=== PATIENT | female | born 1955 | race Caucasian/White ===

== ENCOUNTER → 2017-07-30 | Outpatient (CLI) | payer MEDICARE, OTHER ==
--- NOTE | 2017-07-30 10:43 | Diagnostic Imaging Report ---
INDICATION: Routine screening. COMPARISON: 01/31/2015 and 05/06/2013. TECHNIQUE: Screening digital mammography was performed bilaterally with a Computer Aided Detection (CAD) system. FINDINGS: Scattered fibroglandular densities are identified bilaterally. The parenchymal pattern is stable. A nodular density in the inner left breast at mid depth appears stable. No new mass or malignant appearing microcalcifications are seen. The axillae are unremarkable. IMPRESSION: No mammographic features suspicious for malignancy are identified. ACR BI-RADS Category 2: Benign findings. Result letter will be mailed to the patient. Note: At least 10% of breast cancer is not imaged by mammography. Dictated by: Dictated on workstation # [id number]
== END ==
LOC: RAD 08:45
PROVIDERS: ATTEND Family Medicine
DX: Z12.31 Encounter for screening mammogram for malignant neoplasm of breast (principal)
CPT/HCPCS: 77067

== ENCOUNTER → 2018-08-11 | Outpatient (CLI) | payer MEDICARE, OTHER ==
--- NOTE | 2018-08-11 16:38 | Diagnostic Imaging Report ---
INDICATION: Routine screening. COMPARISON: 07/30/2017 and 01/31/2015. TECHNIQUE: 2D and 3D bilateral screening mammography was performed with CAD. FINDINGS: Scattered fibroglandular densities are identified bilaterally. The parenchymal pattern is stable. No mass or malignant appearing microcalcifications are seen. The axillae are unremarkable. IMPRESSION: No mammographic features suspicious for malignancy are identified. ACR BI-RADS Category 1: Negative. Result letter will be mailed to the patient. Note: At least 10% of breast cancer is not imaged by mammography. Dictated by: Dictated on workstation # [id number]
== END ==
LOC: RAD 07:33
PROVIDERS: ATTEND Family Medicine
DX: Z12.31 Encounter for screening mammogram for malignant neoplasm of breast (principal)
CPT/HCPCS: 77067

== ENCOUNTER → 2018-10-21 | Outpatient (CLI) | payer MEDICARE, OTHER ==
--- NOTE | 2018-10-21 14:59 | Diagnostic Imaging Report ---
EXAMINATION: Right knee at 02:16 p.m. INDICATION: Knee pain. FINDINGS: Three views were obtained. There are no prior studies available for comparison. There is no fracture, dislocation, or acute bony abnormality evident. The knee joint is well maintained. The soft tissues are unremarkable. IMPRESSION: There is no evidence for an acute bony abnormality. Dictated by: Dictated on workstation # [id number]
== END ==
LOC: RAD 14:00
PROVIDERS: ATTEND Family Medicine
DX: M25.461 Effusion, right knee (principal)
CPT/HCPCS: 73562

== ENCOUNTER → 2018-11-13 | Outpatient (CLI) | payer MEDICARE, OTHER ==
--- NOTE | 2018-11-13 09:21 | Diagnostic Imaging Report ---
PROCEDURE: MR imaging cervical spine without contrast. TECHNIQUE: Multiplanar, multisequence MR imaging of the cervical spine was performed without contrast. INDICATION: Bilateral upper extremity pain and lower leg pain. Prior cervical spine surgery. COMPARISON: MRI cervical spine without contrast 08/09/2014. FINDINGS: Posterior arches of C1 and C2 appear to be fused posteriorly. The dens appears to be absent. There is stable atlantoaxial alignment and articulation. C1 is normally situated on the condyles. Stable 6 mm T2 hyperintensity in the cervical cord at the level of C2. Grade 1 anterolisthesis of C3 on C4 and C4 on C5 is stable. There is reversal of the normal cervical lordosis centered at C5. Moderate diffuse degenerative endplate changes. No acute osseous findings. No evidence for ligamentous injury. No high-grade spinal canal narrowing. Uncovertebral and facet arthropathy result in mild bilateral neural foraminal narrowing at C4-C5, moderate at C5-C6 and C6-C7. No other substantial neural foraminal narrowing. The visualized paravertebral soft tissues are unremarkable. IMPRESSION: 1. There appears to be postoperative findings in the atlantoaxial articulation with fusion of the posterior arches. There is stable alignment of the skull base, C1 and C2 compared to the prior exam. Bony anatomy at craniocervical junction could be better assessed with noncontrast CT if clinically warranted. 2. No high-grade spinal canal narrowing. Scattered uwsj-qw-eturfjak neural foraminal narrowing as above. 3. Stable nonspecific T2 hyperintensity in the cervical cord at the level of C2. No other abnormal cervical cord signal. Dictated by: Dictated on workstation # [id number]
== END ==
LOC: RAD 07:47
PROVIDERS: ATTEND Family Medicine
DX: M47.22 Other spondylosis with radiculopathy, cervical region (principal); M43.12 Spondylolisthesis, cervical region; M46.82 Other specified inflammatory spondylopathies, cervical region; M48.02 Spinal stenosis, cervical region; Z98.1 Arthrodesis status
CPT/HCPCS: 72141

== ENCOUNTER 2021-06-12 05:37 | Outpatient (CLI) | payer MEDICARE, OTHER ==
[~2021-06-12] VITALS: Ht 167.7 cm; Wt 63.9 kg
[2021-06-12] MEDS ORDERED: LEVO88CA4 PO (16:29)
[2021-06-12] MEDS ORDERED: LOVA10TA PO (16:29)
[2021-06-12] MEDS ORDERED: TIZA4CAP8 PO (16:29)
[2021-06-12] MEDS ORDERED: TRM50T PO (16:29)
== END 2021-06-12 16:34 | disposition home or self-care (01) ==
LOC: PREOP 05:37
PROVIDERS: ATTEND Obstetrics & Gynecology
DX: Z01.818 Encounter for other preprocedural examination (principal)

== ENCOUNTER 2021-06-18 06:01 | Day surgery (SDC) | payer MEDICARE, OTHER ==
[2021-06-18] VITALS (10 sets, daily range): BP systolic 112–153; BP diastolic 39–72
[~2021-06-18] VITALS: Ht 167 cm; Wt 63.9 kg
[~2021-06-18 06:01] MED LIST: LEVO88CA4 PO; LOVA10TA PO; TIZA4CAP8 PO; TRM50T PO
[2021-06-18] MEDS ORDERED: ceFAZolin 2 GM IV Premixed 50 ML IV ONE (06:15)
[2021-06-18] MEDS ORDERED: metroNIDAZOLE 500MG/100ML IVPB 100 ML IV ONE (06:15)
[2021-06-18 06:45] LABS: BASOPHILS % (AUTO) 1 % (0-10); EOSINOPHILS # (AUTO) 0.1 10^3/uL (0.0-0.3); EOSINOPHILS % (AUTO) 1 % (0-10); HEMATOCRIT 43 % (35-52); HEMOGLOBIN 14.2 g/dL (11.5-16.0); LYMPHOCYTES # (AUTO) 1.8 10^3/uL (1.0-4.0); LYMPHOCYTES % (AUTO) 28 % (12-44); MEAN CORPUSCULAR HEMOGLOBIN 29 pg (25-34); MEAN CORPUSCULAR HGB CONC 33 g/dL (32-36); MEAN CORPUSCULAR VOLUME 89 fL (80-99); MEAN PLATELET VOLUME 9.7 fL (9.0-12.2); MONOCYTES # (AUTO) 0.6 10^3/uL (0.0-1.0); MONOCYTES % (AUTO) 9 % (0-12); NEUTROPHILS # (AUTO) 3.9 10^3/uL (1.8-7.8); NEUTROPHILS % (AUTO) 61 % (42-75); PLATELET COUNT 231 10^3/uL (130-400); WHITE BLOOD COUNT 6.3 10^3/uL (4.3-11.0)
[2021-06-18] MEDS ORDERED: NS (IVPB) 100 ML ONE (06:53)
[2021-06-18] MEDS ORDERED: VASOPRESSIN INJECTION 20 UNIT/ML VIAL ONE (06:53)
[2021-06-18] MEDS ORDERED: BUPIVACAINE 0.25% 30 ML (SENSORCAINE) VIAL ONE (06:53)
[2021-06-18] MEDS ORDERED: ESTROGENS CONJ. CREAM 30 GM (PREMARIN) TUBE ONE (06:53)
[2021-06-18] MEDS ORDERED: proPOfol 200 MG/20 ML (DIPRIVAN) VIAL IV ONE (07:03)
[2021-06-18] MEDS ORDERED: MIDAZOLAM 2 MG/2 ML (VERSED) VIAL ONE (07:03)
[2021-06-18] MEDS ORDERED: fentaNYL INJ 100 MCG/2 ML AMP ONE ×2 (07:03→09:19)
[2021-06-18] MEDS ORDERED: LIDOCAINE PF 2% 5 ML (XYLOCAINE) VIAL ONE (07:03)
[2021-06-18] MEDS ORDERED: ONDANSETRON 4 MG/2 ML (SDV) Z0FRAN ONE (07:03)
[2021-06-18] MEDS: LACTATED RINGERS 1,000 ML IV PRN ×3 (07:04→08:05)
--- NOTE | 2021-06-18 07:18 | Progress Note-Pre Operative ---
Pre-Operative Progress Note H&P Reviewed The H&P was reviewed, patient examined and no changes noted. Date Seen by Provider: Jun 18, 2021 Time Seen by Provider: 07:05 Date H&P Reviewed: Jun 18, 2021 Time H&P Reviewed: 07:10 Pre-Operative Diagnosis: POP, Grade 3 cystocele GALI LORENZ DO Jun 18, 2021 07:18
[2021-06-18] MEDS ORDERED: NALOXONE 0.4 MG/ML 1 ML (NARCAN) VIAL IV PRN (07:30)
[2021-06-18] MEDS ORDERED: ZOLPIDEM 5 MG (AMBIEN) TAB PO PRN (07:30)
[2021-06-18] MEDS ORDERED: ONDANSETRON 4 MG/2 ML (SDV) Z0FRAN IV PRN (07:30)
[2021-06-18] MEDS ORDERED: DOCUSATE SODIUM 100 MG (COLACE) CAP PO PRN (07:30)
[2021-06-18] MEDS ORDERED: ANTACID SUSP 30 ML UDC (MYLANTA) PO PRN (07:30)
[2021-06-18] MEDS ORDERED: CHLORASEPTIC LOZENGE MM PRN (07:30)
[2021-06-18] MEDS ORDERED: SIMETHICONE 80 MG (MYLICON) CHEW PO PRN (07:30)
[2021-06-18] MEDS ORDERED: ROCURONIUM 50 MG/5 ML (ZEMURON) VIAL IV ONE (08:36)
[2021-06-18] MEDS ORDERED: SEVOFLURANE (ULTANE) 15 ML INHAL SOLN ONE (09:00)
[2021-06-18] MEDS ORDERED: HYDROmorphone 2 MG/ML VIAL (DILAUDID) IV ONE (09:15)
[2021-06-18] MEDS ORDERED: MEPERIDINE (DEMEROL) INJ 50 MG/ML IVP ONE (09:15)
[2021-06-18] MEDS ORDERED: fentaNYL INJ 100 MCG/2 ML AMP IVP ONE (09:15)
[2021-06-18] MEDS ORDERED: morphine INJ 10 MG/ML 1ML (SYR OR VIAL) IVP ONE (09:15)
[2021-06-18] MEDS ORDERED: ONDANSETRON 4 MG/2 ML (SDV) Z0FRAN IVP PRN (09:15)
--- NOTE | 2021-06-18 09:27 | Discharge Inst-Women's Service ---
Discharge Inst-Women's Serv Depart Medication/Instructions New, Converted or Re-Newed RX: Transmitted to Pharmacy Problems Reviewed?: Yes Consults/Follow Up Additional Follow Up: Yes Orders/Referrals Dr. Garcia or Lesly in 7-[address] Garcia in 8 weeks Activity Activity: Activity as Tolerated Driving Instructions: No Driving for 1 Week NO SMOKING: NO SMOKING Nothing Inside Vagina: No Douching, No Jennings, No Tampons Diet Discharge Diet: No Restrictions Symptoms to Report to : Bleeding Excessive, Pain Increased, Fever Over 101 Degrees F, Vaginal Bleeding Increase, Questions/Concerns For Any Problems or Questions: Contact Your Physician Skin/Wound Care Infection Signs and Symptoms: Increased Redness, Foul Odor of Wound, Increased Drainage, Skin Itchy or Has a Rash, Increased Swelling, Temperature Above 101 F Operative Area Clean and Dry: Keep Incision Clean/Dry Stitches/[place]/Dermabond: Dermabond, Care of Stitches Bathing Instructions: GALI Martinez DO Jun 18, 2021 09:27
[2021-06-18] MEDS ORDERED: DOCU100C37 PO (09:29)
[2021-06-18] MEDS ORDERED: HYDR-34 PO (09:29)
[2021-06-18] MEDS ORDERED: IBUP-844 PO (09:29)
[2021-06-18] MEDS ORDERED: SMT80CT PO (09:29)
[2021-06-18] MEDS ORDERED: KETOROLAC 30 MG/ML VIAL ONE (10:26)
[2021-06-18] MEDS: KETOROLAC 30 MG/ML VIAL IVP PRN ×3 (10:37→22:46)
[2021-06-18] MEDS: LACTATED RINGERS 1,000 ML IV SCH ×2 (11:25→20:54)
[2021-06-18] MEDS ORDERED: MINERAL OIL 30 ML OIL TOP PRN (11:30)
[2021-06-18] MEDS ORDERED: D5 LR IV SOLUTION 1,000 ML IV SCH (11:30)
[2021-06-18] MEDS: HYDROcodone/APAP 7.5 MG/325 MG (LORTAB, LORCET PLUS) TABLET PO PRN ×2 (12:02→19:47)
[2021-06-18] MEDS ORDERED: CATHETER FLUSH 10 ML SYR IV SCH (14:00)
--- NOTE | 2021-06-18 14:11 | OPERATIVE REPORT ---
DATE OF SERVICE: PREOPERATIVE DIAGNOSES: 1. A 65-year-old female with pelvic organ prolapse. 2. Grade III cystocele. POSTOPERATIVE DIAGNOSES: 1. A 65-year-old female with pelvic organ prolapse. 2. Grade III cystocele. PROCEDURE: Robotic-assisted total laparoscopic hysterectomy with bilateral salpingo-oophorectomy and anterior colporrhaphy. SURGEON: Blaze Lorenz DO TABLE KEEPER: Lesly Mota DNP, was necessary for manipulation and retraction throughout the procedure. ANESTHESIA: General endotracheal. ESTIMATED BLOOD LOSS: 50 mL. URINE OUTPUT: 1000 mL clear at the end of the procedure. FLUIDS: 800 mL lactated Ringer's solution. FINDINGS: A grossly normal appearing uterus, bilateral fallopian tubes and ovaries, a grade III anterior vaginal wall defect, grade I rectocele and descent of the cervix to the vaginal introitus. SPECIMEN SENT: Uterus, bilateral fallopian tubes and ovaries. INDICATIONS FOR PROCEDURE: This 65-year-old female is a patient that was consulted to my office due to concerns of pelvic organ prolapse. The patient reports that she was having difficulty voiding, not bleeding and some urinary retention that was becoming painful. Due to concerns of prolapse, she was evaluated by her primary care doctor who referred her on to my office. I discussed in my office for consideration for pessary placement; however, the patient due to her being relatively medically healthy wished to proceed with more definitive measures in option of surgical correction. Risks of the procedure versus pessary was discussed with the patient in detail and after all of her questions were answered, she was agreeable to proceed with the surgical option. We discussed recovery timeframe, risk from anesthesia. Risks of the surgery itself, possible need for reoperation, postoperative complications that may occur, risk, recovery time frame even . After everything was discussed with the patient in detail, she was still agreeable consent was obtained, the patient was taken to the operating room. OPERATIVE REPORT IN DETAIL: Once in the operating room, general anesthesia was found to be adequate, placed in dorsal lithotomy position, prepped and draped in normal sterile fashion. Timeout was performed. José catheter was placed using sterile technique. A weighted speculum inserted to the patient's vagina. Right angle retractor was used to visualize the cervix. An 0 Vicryl suture was then placed anterior lip of the cervix using my retraction. I then sound the uterine cavity, depth was found to be 8 cm. I selected an 8 cm Shahrzad uterine manipulator tip and 3 cm colpotomy ring. The manipulator tip was advanced into the uterus and the where the balloon was deployed and the colpotomy ring was advanced around the vaginal fornix were secured on the Shahrzad colpotomy ring. I then removed all the other instruments from the patient's vagina, performed change of gloves obtained my attention to the abdomen, where in the left upper quadrant one fingerbreadth subcostally at the midclavicular line, I introduced the Veress needle through the skin until intraperitoneal placement was confirmed using saline drop test. I proceeded with insufflation using CO2 gas and opening pressure of 3 mmHg was noted. I proceeded to max pressure of 15 mmHg, at which point I infiltrated the infraumbilical area using 0.25% Marcaine to make an 8 mm incision with a knife and directed an 8 mm blunt laparoscopic da Khanh camera trocar through this incision until intraperitoneal placement was confirmed using the da Khanh laparoscope. There was no evidence of damage from entry site. There was no evidence of damage upon the various entry site. The Veress was then removed. I then placed the patient in steep Trendelenburg, I am able to visualize all my fellow pelvic anatomy as defined in my findings above. I placed two lateral trocars approximately 8 cm lateral to my infraumbilical trocar. These were both 8 mm incisions that are placed in similar fashion, although these were placed under direct visualization of the laparoscope. Once both these are in place, I bring in the da Khanh robot and docked in appropriate fashion placing the SynchroSeal device in left hand and monopolar iona in the right hand. I performed the following dissection bilaterally. Starting at the infundibulopelvic ligament, I sealed and transected using the SynchroSeal device. I then grasped the round ligament, which I sealed and transected using the SynchroSeal device. I then grasped the entire broad ligament, which I sealed and transected using the SynchroSeal device down to the level of the lower uterine segment, at which point I the anterior and posterior leaflets of the broad ligament. Anterior leaflet was taken around to the anterior vaginal fornix and posterior leaflets was taken around the posterior vaginal fornix. This allows me to skeletonize the uterine vessels laterally, which I sealed and transect using the SynchroSeal device. I then created a colpotomy at 12 o'clock position using monopolar iona and took this circumferentially around the vaginal fornix amputating the cervix away from the vagina. I then removed the entire specimen through the vagina where I closed the lateral vaginal apices of the vaginal cuff using 2-0 Vicryl suture in a ulrsyj-ne-igvbr fashion colposuspending them to the uterosacral ligaments. I then closed the remainder of the vaginal cuff using 2-0 V-Loc in a running fashion, after which there was no active bleeding noted from any of my dissection planes. I then undocked the da Khanh robot and proceeded with remainder of the case laparoscopically. I copiously irrigated the pelvis using normal saline. Once again, no active bleeding noted from any of my dissection planes. I placed FloSeal hemostatic agent over all my planes of dissection to ensure excellent postoperative hemostasis. I then had the patient taken out of steep Trendelenburg where I removed the lateral trocars under direct visualization of the laparoscope and infraumbilical trocars left in place to release insufflation and introduced a 1200 mL of 0.25% Marcaine into peritoneal cavity for postoperative pain management. I then removed this trocar as well. The skin reapproximated using 4-0 Monocryl. Dermabond was applied to the incisions and Band-Aids were placed over the incisions as well. I then took my attention back to the pelvis where the cystocele still noted to be persistent. I placed a weighted speculum into the patient's vagina and began by infiltrating the submucosa of all of the margins of the cystocele using vasopressin, a concentration of 20 units in 100 mL of normal saline. Once this was done and there was blanching of the mucosa, I then made an incision at the base of the bladder on the vaginal mucosa and then undermined this down the midline of the cystocele defect using Metzenbaum scissor. I then make the incision down the midline of the cystocele defect using Metzenbaum scissors. I then dissected off the underlying vesicovaginal fascia using blunt dissection to the lateral margins of the cystocele at which point I reapproximated the lateral healthy margins of the vesicovaginal fascia using 0 Vicryl suture in a plicating fashion, reducing the cystocele. I then trimmed the excess vaginal mucosa. I then proceeded with closing the mucosa using 3-0 Vicryl suture in a running locked fashion, after which there was no active bleeding noted from any of my dissection planes. The cystocele was well reduced. I then packed the vagina using Premarin-soaked packing. All other instruments were removed from the patient's vagina other than the José catheter, which was left in place. Lap and sponge counts were correct at the end of the procedure. Instrument counts correct as well. The patient tolerated the procedure well and sent to recovery in stable condition. Two grams of Ancef, 500 mg of Flagyl were given preoperatively for infection prophylaxis. Job ID: [id number] DocumentID: [id number] Dictated Date: 06/18/2021 09:46:51 Cotton Baler Date: 06/18/2021 14:10:26 Dictated By: BLAZE LORENZ DO
[2021-06-19 01:00] VITALS: BP 111/54
[2021-06-19] MEDS: HYDROcodone/APAP 7.5 MG/325 MG (LORTAB, LORCET PLUS) TABLET PO PRN ×2 (01:03→09:45)
[2021-06-19] MEDS: LACTATED RINGERS 1,000 ML IV SCH (03:25)
[2021-06-19] MEDS: KETOROLAC 30 MG/ML VIAL IVP PRN (05:30)
[2021-06-19 09:09] VITALS: BP 110/56
[2021-06-19] MEDS ORDERED: IBUPROFEN 600 MG (MOTRIN) TAB PO SCH (10:30)
--- NOTE | 2021-06-19 12:27 | Anesthesia-General Post-Op ---
General Patient Condition Mental Status/LOC: Same as Preop Cardiovascular: Satisfactory Nausea/Vomiting: Absent Respiratory: Satisfactory Pain: Controlled Complications: Absent Post Op Complications Complications None Follow Up Care/Instructions Patient Instructions None needed. Anesthesia/Patient Condition Patient Condition Patient is doing well, no complaints, stable vital signs, no apparent adverse anesthesia problems. No complications reported per nursing. HERRERA FORMAN CRNA Jun 19, 2021 12:27
== END 2021-06-19 11:10 | disposition home or self-care (01) ==
LOC: SDC 06:01 → WS 10:00 → SDC 06-19 11:10
PROVIDERS: ATTEND Obstetrics & Gynecology
DX: D25.2 Subserosal leiomyoma of uterus (principal); N81.2 Incomplete uterovaginal prolapse; N81.89 Other female genital prolapse; N94.89 Other specified conditions associated with female genital organs and menstrual cycle; N72 Inflammatory disease of cervix uteri; N88.8 Other specified noninflammatory disorders of cervix uteri; N73.6 Female pelvic peritoneal adhesions (postinfective); N83.8 Other noninflammatory disorders of ovary, fallopian tube and broad ligament; R33.9 Retention of urine, unspecified; Z79.891 Long term (current) use of opiate analgesic; Z79.899 Other long term (current) drug therapy
CPT/HCPCS: 36415; 85025; 86850; 86900; 86901; 87081; 88307; 94664

== ENCOUNTER → 2021-09-18 | Outpatient (CLI) | payer MEDICARE, OTHER ==
[~2021-09-18] MED LIST changes: +DOCU100C37 PO; +HYDR-34 PO; +IBUP-844 PO; +SMT80CT PO
--- NOTE | 2021-09-18 11:15 | Diagnostic Imaging Report ---
INDICATION: Neck pain, degenerative disc disease. COMPARISON: None. FINDINGS: There is a single cannulated orthopedic screw which extends to the posterior elements of C2 into the lateral mass of C1. There is moderate to severe degenerative disc disease and facet arthropathy seen throughout. There are multiple levels of anterolisthesis. There is no traumatic malalignment, fracture or osseous lesion. IMPRESSION: 1. C1-C2 fusion. 2. Moderate severe degenerative disc disease and facet arthropathy. Dictated by: Dictated on workstation # [id number]
--- NOTE | 2021-09-18 14:03 | Diagnostic Imaging Report ---
3-D bilateral screening mammogram with CAD. This study was compared to the prior exam of 08/11/2018. At this time there are no current complaints. The current study was also evaluated with a Computer Aided Detection (CAD) system. FINDINGS: The fibroglandular tissue in both breasts is heterogeneously dense. This does limit the sensitivity of this exam. Overall, there does not appear to have been any significant change when compared to the prior study. No primary or secondary sign of malignancy is noted. IMPRESSION: 1. There is no radiographic evidence for malignancy. 2 The patient should have her annual bilateral screening mammogram on schedule in September 2022. ACR BI-RADS Category 1: Negative. Result letter will be mailed to the patient. Note: At least 10% of breast cancer is not imaged by mammography. Dictated by: Dictated on workstation # [id number]
== END ==
LOC: RAD 07:30
PROVIDERS: ATTEND Family Medicine
DX: Z12.31 Encounter for screening mammogram for malignant neoplasm of breast (principal); M50.30 Other cervical disc degeneration, unspecified cervical region; M47.812 Spondylosis without myelopathy or radiculopathy, cervical region; Z98.1 Arthrodesis status
CPT/HCPCS: 72040; 77063; 77067

== ENCOUNTER → 2022-09-20 | Outpatient (CLI) | payer MEDICARE, OTHER ==
--- NOTE | 2022-09-20 14:27 | Diagnostic Imaging Report ---
INDICATION: Routine screening. Comparison is made with prior mammogram from 09/18/2021 and 08/11/2018. 2-D and 3-D bilateral screening mammography was performed with CAD. CAD is utilized. The current study was also evaluated with a Computer Aided Detection (CAD) system. Scattered fibroglandular densities are identified bilaterally. The parenchymal pattern appears stable. There are occasional benign calcifications noted. No mass or malignant appearing microcalcifications are seen. Axillae are unremarkable. IMPRESSION: BI-RADS Category 2 No mammographic features suspicious for malignancy are identified. ACR BI-RADS Category 2: Benign findings. Result letter will be mailed to the patient. Note: At least 10% of breast cancer is not imaged by mammography. Dictated by: Dictated on workstation # [id number]
== END ==
LOC: RAD 08:25
PROVIDERS: ATTEND Nurse Practitioner Women's Health
DX: Z12.31 Encounter for screening mammogram for malignant neoplasm of breast (principal)
CPT/HCPCS: 77063; 77067